=== PATIENT | female | born 1980 | race Caucasian/White ===

== ENCOUNTER → 2017-12-17 01:48 | Observation (INO) ==
[2017-12-16 23:39] LABS: Bilirubin,Urine Negative (Negative); Blood,Urine Negative (Negative); Clarity,Urine Clear (Clear); Color,Urine Yellow (Yellow); Glucose,Urine (UA) Normal (Normal); Ketones,Urine Negative (Negative); Leukocyte Esterase,Urine Negative (Negative); Nitrite,Urine Negative (Negative); PH,Urine 6.5 pH Units (5.0-8.0); Protein,Urine Negative (Neg-Trace); Specific Gravity,Urine 1.017 (1.010-1.025); Urobilinogen,Urine Normal (Normal)
[2017-12-16 23:48] LABS: Amphetamine Screen,Urine Negative ng/mL (Cutoff=1000); Barbiturate Screen,Urine Negative ng/mL (Cutoff=200); Benzodiazepines Screen,Urine Negative ng/mL (Cutoff=200); Cannabinoid Screen,Urine Negative ng/mL (Cutoff = 50); Cocaine Screen,Urine Negative ng/mL (Cutoff= 300); Opiate Screen,Urine Negative ng/mL (Cutoff=300); Phencyclidine Screen,Urine Negative ng/mL (Cutoff=25)
--- NOTE | 2017-12-17 01:34 | Discharge Summary ---
Date of Encounter: 12/17/17 Time of Encounter: 01:33 - Discharge Diagnosis (1) 31 weeks gestation of Priority: Primary Status: Acute Comments: Admitted for rule out of labor. UA WNL, reactive NST, no cervical change in one hour. Discussed plan of care with Dr. Melchor. Advised to send home if no cervical change in 1 hour. Follow up with Dr. Melchor as scheduled on 12/20/17. (2) Abdominal cramping affecting Priority: Secondary Status: Acute Comments: Admitted for observation of cramping. Mild irritability noted on uterine toco. No cervical change in one hour. OTC Tylenol and/or heating pad to back as needed for pain. (3) NST (non-stress test) reactive Priority: Secondary Status: Acute Comments: FHR 120 bpm, moderate variability, +15x15 accels, no decels. - Discharge Medications Home Medications: Pnv95/Ferrous Fumarate/FA [ Vitamin Tablet] 1 each PO 12/16/17 [History] Allergies/Adverse Reactions: Allergy/AdvReac Type Severity Reaction Status Date / Time ethinyl estradiol Allergy Rash Verified 07/08/17 20:59 [From Ortho Tri-Cyclen (28)] Hydroxychloroquine Allergy Rash Verified 07/08/17 20:59 [From Plaquenil] naproxen Allergy Rash Verified 07/08/17 20:59 norgestimate Allergy Rash Verified 07/08/17 20:59 [From Ortho Tri-Cyclen (28)] Penicillins Allergy Rash Verified 07/08/17 20:59 Data Procedures and tests throughout hospitalization: Laboratory Tests 12/16/17 12/16/17 23:28 23:28 Urine Color Yellow Urine Clarity Clear Urine pH 6.5 Ur Specific [place] 1.017 Urine Protein Negative Urine Glucose (UA) Normal Urine Ketones Negative Urine Blood Negative Urine Nitrite Negative Urine Bilirubin Negative Urine Urobilinogen Normal Ur Leukocyte Esterase Negative Ur Culture Indicated? NO Urine Opiates Screen Negative Ur Barbiturates Screen Negative Ur Phencyclidine Scrn Negative Ur Amphetamines Screen Negative U Benzodiazepines Scrn Negative Urine Cocaine Screen Negative U Marijuana (THC) Screen Negative Ur Drug Screen Interp See Below Labs on day of discharge: Labs from last 24 hours 12/16/17 12/16/17 23:28 23:28 Urine Color Yellow Urine Clarity Clear Urine pH 6.5 Ur Specific [place] 1.017 Urine Protein Negative Urine Glucose (UA) Normal Urine Ketones Negative Urine Blood Negative Urine Nitrite Negative Urine Bilirubin Negative Urine Urobilinogen Normal Ur Leukocyte Esterase Negative Ur Culture Indicated? NO Urine Opiates Screen Negative Ur Barbiturates Screen Negative Ur Phencyclidine Scrn Negative Ur Amphetamines Screen Negative U Benzodiazepines Scrn Negative Urine Cocaine Screen Negative U Marijuana (THC) Screen Negative Ur Drug Screen Interp See Below Date of admission: 12/16/17 23:12 Discharging clinician: Kerry Cuellar Anticipated date of discharge: 12/17/17 - Patient Status Disposition: Home, Self-Care Condition: Good Functional capacity at discharge: independent ambulation Overall status at discharge: patient is back to baseline - Discharge Instructions Follow Up With: Shamir Melchor MD [Partnered Physician] - - Diet and Activity Activity: resume usual activities as tolerated Diet: regular diet Hospital Course COMPOUND MIXER Hospital course: Tanja is a 37 year-old G [address] Melchor who present to the L&D unit with complaint of contractions, approximately 5-6 per hour, since 1700 today. Patient states she was at work when this started and had to leave to come be evaluated. She reports positive movement and denies vaginal bleeding, discharge, and fluid leakage. Denies intercourse in the last 48 hours. Patient reports this cramping pain is a level 8 of 10. UA reviewed and WNL. Patient states she does not work again until Tuesday next week. Discussed plan of care with Dr. Melchor and he suggested rechecking cervix in one hour and send home if no change. After one hour no cervical change was noted so patient given labor precautions. Time Attestation: Total time spent providing and/or coordinating discharge services: Time Spent: Less than 30 minutes Exam - Constitutional General appearance IM: cooperative, A&O X 3, no acute distress - Respiratory Respiratory exam: Present: CTAB - Cardiovascular Cardiovascular exam IM: Present: RRR, +S1, +S2 - GI/Abdominal GI/Abdominal exam IM: normal bowel sounds - Rectal Rectal exam: deferred - Neurological Exam Neurological exam: alert, normal gait, oriented X3 - VTE Reasons for not Prescribing Prophylaxis: Treatment not Indicated - Low risk for VTE
== END | disposition home or self-care (01) ==
LOC: 1NENULAB
PROVIDERS: ADMIT Obstetrics & Gynecology; ATTEND Obstetrics & Gynecology

== ENCOUNTER 2018-02-06 09:50 | Inpatient (IN) ==
[2018-02-06] MEDS ORDERED: Famotidine 20 MG/2 ML VIAL IVP PRN (10:31)
[2018-02-06] MEDS ORDERED: Naloxone 0.4 MG/ML INJ IVP PRN ×2 (10:31→11:54)
[2018-02-06] MEDS ORDERED: Metoclopramide 10 MG/2 ML VIAL IVP PRN (10:31)
[2018-02-06] MEDS ORDERED: Oxytocin 20 units/ LR 1000 mL 20 UNIT/1,000 ML BAG IVC SCH ×2 (10:45→20:14)
[2018-02-06] MEDS ORDERED: EPHEDrine 50 MG/ML VIAL IVP PRN (10:56)
[2018-02-06] MEDS ORDERED: Epidural Premix (fent/bupiv) 110 ML EP SCH (11:00)
--- NOTE | 2018-02-06 11:33 | Anesthesia Evaluation PreOp ---
Date of Encounter: 02/06/18 Time of Encounter: 11:16 - Past History Planned Operation: vaginal del, , multiparous 38wk induction Cardiac History: HTN (no current med according to patient), Hyperlipidemia Pulmonary History: Denies Any Significant HX EVP GENERAL COUNSEL History: Denies Any Significant HX Other Medical History: Denies Any Significant HX Anesthesia History: No Prior Anesthetic Complications, Past Anesthesia (2 previous epdurals without comp, "goes fast" del without in past also.) Alcohol Use: none Drug use: none Medications and Allergies Pnv95/Ferrous Fumarate/FA [ Vitamin Tablet] 1 each PO DAILY 12/16/17 [History] Allergy/AdvReac Type Severity Reaction Status Date / Time ethinyl estradiol Allergy Rash Verified 02/06/18 10:27 [From Ortho Tri-Cyclen (28)] Hydroxychloroquine Allergy Rash Verified 02/06/18 10:27 [From Plaquenil] naproxen Allergy Rash Verified 02/06/18 10:27 norgestimate Allergy Rash Verified 02/06/18 10:27 [From Ortho Tri-Cyclen (28)] Penicillins Allergy Rash Verified 02/06/18 10:27 Anesthesia Exam - HEENT Pupil (Motor): Pupils equal Mallampati: II Teeth: Normal Oral Opening: Greater than 3 - EVP GENERAL COUNSEL LOC: Oriented EVP GENERAL COUNSEL Motor: Normal RUE, Normal LUE, Normal RLE, Normal LLE, Normal Face EVP GENERAL COUNSEL Sensory: Normal: RUE, LUE, RLE, LLE, Face - Cardiac Rhythm: Regular - Pulmonary Breath Sounds: bilateral Clear Respiratory Effort: Symmetrical Anesthesia Assess/Plan ASA Score: 2 Level of consciousness: Cooperative, Oriented Anesthetic Plan: General, Spinal, Epidural Monitoring Plan: Standard Monitors Recovery Plan: PACU
[2018-02-06] MEDS ORDERED: Lidocaine -MPF 2% 5 ML VIAL ONE (11:41)
[2018-02-06] MEDS ORDERED: *HR* Nalbuphine 10 MG/ML AMPUL IV PRN (11:42)
[2018-02-06] MEDS: Ringers Solution, Lactated 1,000 ML IVC SCH ×2 (12:06→15:25)
[2018-02-06 12:22] LABS: Basophils % 0.3 %; Eosinophils # 0.2 K/mcL (0.0-0.6); Eosinophils % 1.9 %; Immature Granulocytes % 0.6 % (0-4); Lymphocytes # 2.3 K/mcL (0.6-4.6); Lymphocytes % 18.6 %; Mean Corpuscular HGB Conc 34.3 g/dL (31.6-35.5); Mean Corpuscular Hemoglobin 32.4 pg (28.0-33.3); Mean Corpuscular Volume 94.6 fL (83.0-100.0); Mean Platelet Volume 10.2 fL (9.4-12.4); Monocytes # 0.8 K/mcL (0.0-1.3); Monocytes % 6.6 %; Neutrophils # 8.9 K/mcL (1.6-8.9); Platelet Count 262 K/mcL (140-400); Red Cell Distribution Width 13.1 % (11.5-14.5)
[2018-02-06 12:30] LABS: Amphetamine Screen,Urine Negative ng/mL (Cutoff=1000); Barbiturate Screen,Urine Negative ng/mL (Cutoff=200); Benzodiazepines Screen,Urine Negative ng/mL (Cutoff=200); Cannabinoid Screen,Urine Negative ng/mL (Cutoff = 50); Cocaine Screen,Urine Negative ng/mL (Cutoff= 300); Opiate Screen,Urine Negative ng/mL (Cutoff=300); Phencyclidine Screen,Urine Negative ng/mL (Cutoff=25)
[2018-02-06 13:10] LABS: Alanine Aminotransferase 13 Units/L (7-52); Aspartate Amino Transferase 16 Units/L (13-39); BUN/Creatinine Ratio 24 (6-26); Blood Urea Nitrogen 9 mg/dL (6-20); Lactate Dehydrogenase 144 Units/L (140-271); Uric Acid 5.5 mg/dL (2.3-7.6); eGFR For Non-African Americans > 60 (> 60)
--- NOTE | 2018-02-06 13:55 | OB/GYN History & Physical ---
Date of Encounter: 02/06/18 Time of Encounter: 13:52 Assessment and Plan (1) 39 weeks gestation of Current visit: Yes Status: Acute Induction of labor History of Present Illness Chief complaint: Induction of labor HPI: Ms. Parr is a 37 year old female scheduled for induction of labor at 39 weeks and 1 day. Patient with advanced cervical dilation and history of rapid labors. On presentation patient is 4-5 cm 80% effaced and -1 station. Infant is vertex. She is doing well. She is rah irregularly. She has allergies to Naprosyn and penicillin. Current medications include vitamins. Chronic medical conditions include chronic migraines, anxiety, hypercholesterolemia, hypertension. Surgical history includes a cholecystectomy and tonsillectomy. She has no history of abnormal Pap smears, STDs or pelvic infections. She has no history of abnormal breast findings. Socially she denies tobacco, alcohol, illicit drug use. Obstetric history significant for 4 term vaginal deliveries. Family history is significant for heart disease, hypertension and mental issues. Past Med Surg Social Fam HX - Past Medical History Medical history: hyperlipidemia, hypertension, migraine Additional medical history: lupus Psychiatric history: anxiety - Past Surgical History Surgical History: cholecystectomy, other Additional surgical history: T&A - Social History Smoking Status: Current every day smoker Packs per day: 0.5-1 Smokeless Tobacco Status: No Alcohol use: none Drug use: none - Family History Mother Family Member Ethnicity: Non- Living Status: Still Living Hx Family Cardiac Disorders: Yes (HTN) Hx Family Medical Disorders: Yes (depression) Obstetrical History - Pregnancies : 15 Para: 4 Term: 4 : 0 Ab's: 10 Livin Medications and Allergies Pnv95/Ferrous Fumarate/FA [ Vitamin Tablet] 1 each PO DAILY 12/16/17 [History] Allergy/AdvReac Type Severity Reaction Status Date / Time ethinyl estradiol Allergy Rash Verified 02/06/18 10:27 [From Ortho Tri-Cyclen (28)] Hydroxychloroquine Allergy Rash Verified 02/06/18 10:27 [From Plaquenil] naproxen Allergy Rash Verified 02/06/18 10:27 norgestimate Allergy Rash Verified 02/06/18 10:27 [From Ortho Tri-Cyclen (28)] Penicillins Allergy Rash Verified 02/06/18 10:27 Review of System OB All systems PM: reviewed and no additional remarkable complaints except as stated Exam - Constitutional Constitutional: well developed, well nourished, no acute distress, average body habitus - HEENT HEENT: EOMI, PERRL - Neck Neck exam: full ROM - Lungs Respiratory exam: CTAB - Cardiovascular Cardiovascular exam: RRR - Abdomen Abdomen: Present: bowel sounds normal, gravid Results Result Diagrams: 02/06/18 10:32 02/06/18 11:25 Abnormal lab results WBC 12.3 K/mcL (4.3-11.1) H 02/06/18 10:32 RBC 3.70 M/mcL (3.82-4.97) L 02/06/18 10:32 Hct 35.0 % (35.3-44.9) L 02/06/18 10:32 Creatinine 0.37 mg/dL (0.60-1.20) L 02/06/18 11:25 All other labs normal. - VTE Reasons for not Prescribing Prophylaxis: Treatment not Indicated - Low risk for VTE
--- NOTE | 2018-02-06 14:08 | Anesthesia Procedures ---
Addendum entered and electronically signed by Curtis Dockery CRNA 02/06/18 19:02: Infant Delivery Date: 02/06/18 Infant Delivery Time: 18:17 Original Note: Date of Encounter: 02/06/18 Time of Encounter: 13:49 Procedures: Anesthesia - Epidural/Spinal Patient ID/Chart reviewed: Yes Patient examined: Yes OB Eval: Gestational age: term OB Eval: Contractions: Non-stressed pattern Consent Obtained: Yes Supplemental Oxygen: None/Room Air Site Prep: Aseptic Technique, Sterile prep and drape, 0.5% Chlorhexidine/Alcohol Patient position: upright Local Anesthetic: Lidocaine 1% Amount of Local Anesthetic used: 2 Touhy Needle Gauge: 18 Touhy Needle Depth (cm): 7 Catheter Depth at Skin (cm): 11 Test Dose (1.5% Lido + Epi): Volume given (mls): 3 Test Dose Result: Negative Loading Dose: Other: 10ml from solution Loading Dose Administered: Thru Catheter Infusion Med: 0.125% Bupivacaine w/ 2 mcg/ml Fentanyl Infusion Rate (mls/hr): [address]: Tegaderm, Tape Interspace Used: L3-L4 Loss of Resistance (TERRY): Yes (saline) Blood: No CSF: No Paresthesia: No Procedure: vss though out procedure, FHR stable per RN's
--- NOTE | 2018-02-06 15:36 | OB Labor Progress Note ---
Date of Encounter: 02/06/18 Time of Encounter: 15:34 Labor Progress Note - Subjective Subjective: Patient comfortable with epidural. - Cervix Cervix: 6/70/-1 - Heart Tones Heart Tones: FHR Category I - [place]: Contractions adequate - Interventions Interventions: SVE AROM - large amount clear fluid - Plan Physician notified: Yes Plan: Continue induction management Frequent position changes Anticipate vaginal delivery Dr. Melchor updated
--- NOTE | 2018-02-06 16:42 | OB/GYN Progress Note ---
Date of Encounter: 02/06/18 Time of Encounter: 16:40 - Assessment and Plan (1) 39 weeks gestation of Current Visit: Yes Status: Acute Induction of labor Subjective - Subjective Principal diagnosis: labor Interval history: Tanja Levin is a 37-year-old female G 15 P4 who presented today for induction of labor. Artificial rupture membranes performed by prison guard supervisor. Sterile vaginal exam 6 cm 90% effaced and -1 station. Clear fluid being noted. Objective - Vital Signs Vital Signs: Intake and Output 02/06/18 02/06/18 02/06/18 07:59 15:59 23:59 Intake Total 1000 / 1000 Balance 1000 / 1000 Intake: IV Fluids 1000 / 1000 Lactated Ringers 1,000 ML @ 125 1000 / 1000 mls/hr IVC .Q8H DENISE Rx#: [id number] Other: Weight 89.3 kg Patient Weight 02/06/18 23:59 Weight 89.3 kg - Exam FHR: category 1 Abdomen: Present: normal appearance Uterus: Present: normal Cervical dilation: 6 Cervix effacement: 90 station: -1 - Labs Labs: Abnormal lab results WBC 12.3 K/mcL (4.3-11.1) H 02/06/18 10:32 RBC 3.70 M/mcL (3.82-4.97) L 02/06/18 10:32 Hct 35.0 % (35.3-44.9) L 02/06/18 10:32 Creatinine 0.37 mg/dL (0.60-1.20) L 02/06/18 11:25
--- NOTE | 2018-02-06 18:48 | OB/GYN Procedure Note ---
Delivery - Delivery Provider: Shamir Melchor Intrapartum events: none Delivery induction: AROM, oxytocin Delivery augmentation: rupture of membranes Delivery monitor: external FHT, external uterine Anesthesia: epidural Quantitated Blood Loss: 300 - (s) Infant A Delivery Date: 02/06/18 Infant Delivery Time: 18:17 Presentation: vertex Position: OA Gender: Female Viability: Viable Pounds: 6 Ounces: 11 at 1 minute: 8 at 5 mins: 9 Shoulder Dystocia: not encountered Specimens collected: cord blood Placenta: spontaneous Cord: 3 umbilical vessels - Repair Laceration Description: None - Complications Delivery complications: none Delivery comments: Patient progressed to complete and pushing had a rapid spontaneous vaginal delivery of a female over an intact perineum. Infant's head was in the perineum easily. The rest of the infant was not delivered with 1 push. cried immediately upon delivery. The cord was cut to cut. The was in past nurse in attendance. Cord bloods obtained. Placenta was delivered spontaneously intact. There are no cervical, vaginal, periurethral, or perineal lacerations noted. Patient delivered a female infant weight is 6 lbs. 11 oz. with a 9 Apgars. - Disposition Mom disposition: stable in LDR disposition: stable in LDR
[2018-02-06] MEDS ORDERED: Measles/Mumps/Rubella Vacc 0.5 ML VIAL SQ PRN (20:14)
[2018-02-06] MEDS ORDERED: Acetaminophen 325 MG TABLET PO PRN (20:14)
[2018-02-06] MEDS ORDERED: Rho Immune Globulin 1,500 UNIT SYRINGE IM PRN (20:14)
[2018-02-06] MEDS ORDERED: Ibuprofen 600 MG TABLET PO PRN (21:24)
[2018-02-07 08:06] LABS: Basophils % 0.3 %; Eosinophils # 0.2 K/mcL (0.0-0.6); Eosinophils % 1.5 %; Hematocrit 28.8 % (35.3-44.9); Immature Granulocytes % 0.5 % (0-4); Lymphocytes # 3.2 K/mcL (0.6-4.6); Lymphocytes % 28.2 %; Mean Corpuscular HGB Conc 34.4 g/dL (31.6-35.5); Mean Corpuscular Hemoglobin 32.5 pg (28.0-33.3); Mean Corpuscular Volume 94.4 fL (83.0-100.0); Mean Platelet Volume 10.3 fL (9.4-12.4); Monocytes # 0.9 K/mcL (0.0-1.3); Monocytes % 7.9 %; Neutrophils # 6.9 K/mcL (1.6-8.9); Platelet Count 237 K/mcL (140-400); Red Blood Count 3.05 M/mcL (3.82-4.97); Red Cell Distribution Width 12.9 % (11.5-14.5); Segmented Neutrophils % 61.6 %
[2018-02-07 08:11] VITALS: BP 114/71
[2018-02-07 08:26] LABS: Hemoglobin 9.9 g/dL (11.5-15.4)
[2018-02-07] MEDS ORDERED: Prenatal Vit/FA 1 EACH TABLET PO SCH (09:00)
--- NOTE | 2018-02-07 11:07 | Discharge Summary ---
Date of Encounter: 02/07/18 Time of Encounter: 11:06 - Discharge Medications Prescriptions: Breast Pump [BREAST PUMP] 1 each .ROUTE AD #1 each Home Medications: Pnv95/Ferrous Fumarate/FA [ Vitamin Tablet] 1 each PO DAILY 12/16/17 [History] Breast Pump [BREAST PUMP] 1 each .ROUTE AD #1 each 02/07/18 [Rx] Allergies/Adverse Reactions: Allergy/AdvReac Type Severity Reaction Status Date / Time ethinyl estradiol Allergy Rash Verified 02/06/18 10:27 [From Ortho Tri-Cyclen (28)] Hydroxychloroquine Allergy Rash Verified 02/06/18 10:27 [From Plaquenil] naproxen Allergy Rash Verified 02/06/18 10:27 norgestimate Allergy Rash Verified 02/06/18 10:27 [From Ortho Tri-Cyclen (28)] Penicillins Allergy Rash Verified 02/06/18 10:27 Data Procedures and tests throughout hospitalization: Laboratory Tests 02/06/18 02/06/18 02/06/18 10:32 11:25 11:25 WBC 12.3 H RBC 3.70 L Hgb 12.0 Hct 35.0 L MCV 94.6 MCH 32.4 MCHC 34.3 RDW 13.1 Plt Count 262 MPV 10.2 Immature Gran % 0.6 Seg Neutrophils % 72.0 Lymphocytes % 18.6 Monocytes % 6.6 Eosinophils % 1.9 Basophils % 0.3 Neutrophils # 8.9 Lymphocytes # 2.3 Monocytes # 0.8 Eosinophils # 0.2 Basophils # 0.0 BUN 9 Creatinine 0.37 L Est GFR ( Amer) > 60 Est GFR (Non-Af Amer) > 60 BUN/Creatinine Ratio 24 Uric Acid 5.5 AST 16 ALT 13 Lactate Dehydrogenase 144 Urine Opiates Screen Negative Ur Barbiturates Screen Negative Ur Phencyclidine Scrn Negative Ur Amphetamines Screen Negative U Benzodiazepines Scrn Negative Urine Cocaine Screen Negative U Marijuana (THC) Screen Negative Ur Drug Screen Interp See Below Baby's Blood Type Mother's Blood Type Rhogam Indicated 02/06/18 02/07/18 18:50 07:37 WBC 11.2 H RBC 3.05 L Hgb 9.9 L D Hct 28.8 L MCV 94.4 MCH 32.5 MCHC 34.4 RDW 12.9 Plt Count 237 MPV 10.3 Immature Gran % 0.5 Seg Neutrophils % 61.6 Lymphocytes % 28.2 Monocytes % 7.9 Eosinophils % 1.5 Basophils % 0.3 Neutrophils # 6.9 Lymphocytes # 3.2 Monocytes # 0.9 Eosinophils # 0.2 Basophils # 0.0 BUN Creatinine Est GFR ( Amer) Est GFR (Non-Af Amer) BUN/Creatinine Ratio Uric Acid AST ALT Lactate Dehydrogenase Urine Opiates Screen Ur Barbiturates Screen Ur Phencyclidine Scrn Ur Amphetamines Screen U Benzodiazepines Scrn Urine Cocaine Screen U Marijuana (THC) Screen Ur Drug Screen Interp Baby's Blood Type A RH POSITIVE Mother's Blood Type A RH NEGATIVE Rhogam Indicated YES Labs on day of discharge: Labs from last 24 hours 02/07/18 02/06/18 02/06/18 07:37 18:50 11:25 WBC 11.2 H RBC 3.05 L Hgb 9.9 L D Hct 28.8 L MCV 94.4 MCH 32.5 MCHC 34.4 RDW 12.9 Plt Count 237 MPV 10.3 Immature Gran % 0.5 Seg Neutrophils % 61.6 Lymphocytes % 28.2 Monocytes % 7.9 Eosinophils % 1.5 Basophils % 0.3 Neutrophils # 6.9 Lymphocytes # 3.2 Monocytes # 0.9 Eosinophils # 0.2 Basophils # 0.0 BUN 9 Creatinine 0.37 L Est GFR ( Amer) > 60 Est GFR (Non-Af Amer) > 60 BUN/Creatinine Ratio 24 Uric Acid 5.5 AST 16 ALT 13 Lactate Dehydrogenase 144 Urine Opiates Screen Ur Barbiturates Screen Ur Phencyclidine Scrn Ur Amphetamines Screen U Benzodiazepines Scrn Urine Cocaine Screen U Marijuana (THC) Screen Ur Drug Screen Interp Screen Pending Baby's Blood Type A RH POSITIVE Mother's Blood Type A RH NEGATIVE Rhogam Indicated YES Rhogam Req for Mother Pending 02/06/18 02/06/18 11:25 10:32 WBC 12.3 H RBC 3.70 L Hgb 12.0 Hct 35.0 L MCV 94.6 MCH 32.4 MCHC 34.3 RDW 13.1 Plt Count 262 MPV 10.2 Immature Gran % 0.6 Seg Neutrophils % 72.0 Lymphocytes % 18.6 Monocytes % 6.6 Eosinophils % 1.9 Basophils % 0.3 Neutrophils # 8.9 Lymphocytes # 2.3 Monocytes # 0.8 Eosinophils # 0.2 Basophils # 0.0 BUN Creatinine Est GFR ( Amer) Est GFR (Non-Af Amer) BUN/Creatinine Ratio Uric Acid AST ALT Lactate Dehydrogenase Urine Opiates Screen Negative Ur Barbiturates Screen Negative Ur Phencyclidine Scrn Negative Ur Amphetamines Screen Negative U Benzodiazepines Scrn Negative Urine Cocaine Screen Negative U Marijuana (THC) Screen Negative Ur Drug Screen Interp See Below Screen Baby's Blood Type Mother's Blood Type Rhogam Indicated Rhogam Req for Mother Date of admission: 02/06/18 09:50 Primary care physician: Maura Zuniga CNP Consults: 02/06/18 20:14 Consult to Bench Technician [CONS] Routine Comment: Vaginal delivery, consult needed Discharging clinician: Silva Meyers Anticipated date of discharge: 02/07/18 - Discharge Instructions Follow Up With: Maura Zuniga CNP [Primary Care Provider] - Hospital Course Time Attestation: Total time spent providing and/or coordinating discharge services: - VTE Reasons for not Prescribing Prophylaxis: Treatment not Indicated - Low risk for VTE Exam - Constitutional Vitals: Temp Pulse Resp BP Pulse Ox 98.3 F 68 16 114/71 98 02/07/18 08:09 02/07/18 08:09 02/07/18 08:09 02/07/18 08:09 02/07/18 08:09
--- NOTE | 2018-02-07 11:47 | OB/GYN Progress Note ---
Date of Encounter: 02/07/18 Time of Encounter: 11:46 Subjective - Subjective Principal diagnosis: 3 Objective - Latest Vital Signs Latest vital signs: Vital Signs Temp Pulse Resp BP Pulse Ox 02/07/18 08:09 98.3 F 68 16 114/71 98 02/07/18 03:00 98.0 F 67 16 118/73 98 02/06/18 23:00 97.9 F 66 16 134/88 98 02/06/18 22:00 98.0 F 66 14 126/83 99 02/06/18 21:00 97.9 F 71 14 139/87 98 Intake and Output 02/06/18 02/07/18 02/07/18 23:59 07:59 15:59 Intake Total 1200 / 1200 800 / 800 Output Total 500 / 500 250 / 250 100 / 100 Balance -500 / -500 950 / 950 700 / 700 Intake: IV Fluids 600 / 600 Pitocin 20 unit In 1,000 ml @ 600 / 600 125 mls/hr IVC .Q8H DENISE Rx#: [id number] Oral 600 / 600 800 / 800 Output: Urine 200 / 200 250 / 250 100 / 100 Estimated Blood Loss 300 / 300 Other: Weight 85 kg Patient Weight 02/07/18 23:59 Weight 85 kg - Labs Labs: Laboratory Results - last 24 hr 02/06/18 02/06/18 02/06/18 10:32 11:25 11:25 WBC 12.3 H RBC 3.70 L Hgb 12.0 Hct 35.0 L MCV 94.6 MCH 32.4 MCHC 34.3 RDW 13.1 Plt Count 262 MPV 10.2 Immature Gran % 0.6 Seg Neutrophils % 72.0 Lymphocytes % 18.6 Monocytes % 6.6 Eosinophils % 1.9 Basophils % 0.3 Neutrophils # 8.9 Lymphocytes # 2.3 Monocytes # 0.8 Eosinophils # 0.2 Basophils # 0.0 BUN 9 Creatinine 0.37 L Est GFR ( Amer) > 60 Est GFR (Non-Af Amer) > 60 BUN/Creatinine Ratio 24 Uric Acid 5.5 AST 16 ALT 13 Lactate Dehydrogenase 144 Urine Opiates Screen Negative Ur Barbiturates Screen Negative Ur Phencyclidine Scrn Negative Ur Amphetamines Screen Negative U Benzodiazepines Scrn Negative Urine Cocaine Screen Negative U Marijuana (THC) Screen Negative Ur Drug Screen Interp See Below Screen Baby's Blood Type Mother's Blood Type Rhogam Indicated Rhogam Req for Mother 02/06/18 02/07/18 18:50 07:37 WBC 11.2 H RBC 3.05 L Hgb 9.9 L D Hct 28.8 L MCV 94.4 MCH 32.5 MCHC 34.4 RDW 12.9 Plt Count 237 MPV 10.3 Immature Gran % 0.5 Seg Neutrophils % 61.6 Lymphocytes % 28.2 Monocytes % 7.9 Eosinophils % 1.5 Basophils % 0.3 Neutrophils # 6.9 Lymphocytes # 3.2 Monocytes # 0.9 Eosinophils # 0.2 Basophils # 0.0 BUN Creatinine Est GFR ( Amer) Est GFR (Non-Af Amer) BUN/Creatinine Ratio Uric Acid AST ALT Lactate Dehydrogenase Urine Opiates Screen Ur Barbiturates Screen Ur Phencyclidine Scrn Ur Amphetamines Screen U Benzodiazepines Scrn Urine Cocaine Screen U Marijuana (THC) Screen Ur Drug Screen Interp Screen NEGATIVE Baby's Blood Type A RH POSITIVE Mother's Blood Type A RH NEGATIVE Rhogam Indicated YES Rhogam Req for Mother 1
--- NOTE | 2018-02-07 11:54 | Discharge Summary ---
Date of Encounter: 02/07/18 Time of Encounter: 11:50 - Discharge Diagnosis (1) Status post vaginal delivery Priority: Secondary Status: Acute Comments: Status post vaginal delivery day 1 Meeting day 1 milestones Pain is well controlled Ambulating without dizziness Appetite is normal Voiding well and passing flatus Lochia is light Mood is appropriate Discussed safe spacing Will do one dose of Depo provera for contraception Healthy female 6lb 11oz 8/9 Well to discharge to home Follow up in 4 weeks (2) 39 weeks gestation of Priority: Primary Status: Acute Comments: Now Delivered at 39w1d - Discharge Medications Prescriptions: RX: Ibuprofen [Motrin] 600 mg PO Q6HR PRN #30 tablet PRN Reason: Pain Breast Pump [BREAST PUMP] 1 each .ROUTE AD #1 each RX: Docusate [Colace] 100 mg PO BID #30 capsule RX: Ferrous Sulfate 325 mg PO DAILY #90 tablet Home Medications: RX: Pnv95/Ferrous Fumarate/FA [ Vitamin Tablet] 1 each PO DAILY 12/16/17 [History] Breast Pump [BREAST PUMP] 1 each .ROUTE AD #1 each 02/07/18 [Rx] RX: Acetaminophen [Tylenol] 650 mg PO Q6HR PRN tablet 02/07/18 [Rx] RX: Docusate [Colace] 100 mg PO BID #30 capsule 02/07/18 [Rx] RX: Ferrous Sulfate 325 mg PO DAILY #90 tablet 02/07/18 [Rx] RX: Ibuprofen [Motrin] 600 mg PO Q6HR PRN #30 tablet 02/07/18 [Rx] Allergies/Adverse Reactions: Allergy/AdvReac Type Severity Reaction Status Date / Time ethinyl estradiol Allergy Rash Verified 02/06/18 10:27 [From Ortho Tri-Cyclen (28)] Hydroxychloroquine Allergy Rash Verified 02/06/18 10:27 [From Plaquenil] naproxen Allergy Rash Verified 02/06/18 10:27 norgestimate Allergy Rash Verified 02/06/18 10:27 [From Ortho Tri-Cyclen (28)] Penicillins Allergy Rash Verified 02/06/18 10:27 Data Procedures and tests throughout hospitalization: Laboratory Tests 02/06/18 02/06/18 02/06/18 10:32 11:25 11:25 WBC 12.3 H RBC 3.70 L Hgb 12.0 Hct 35.0 L MCV 94.6 MCH 32.4 MCHC 34.3 RDW 13.1 Plt Count 262 MPV 10.2 Immature Gran % 0.6 Seg Neutrophils % 72.0 Lymphocytes % 18.6 Monocytes % 6.6 Eosinophils % 1.9 Basophils % 0.3 Neutrophils # 8.9 Lymphocytes # 2.3 Monocytes # 0.8 Eosinophils # 0.2 Basophils # 0.0 BUN 9 Creatinine 0.37 L Est GFR ( Amer) > 60 Est GFR (Non-Af Amer) > 60 BUN/Creatinine Ratio 24 Uric Acid 5.5 AST 16 ALT 13 Lactate Dehydrogenase 144 Urine Opiates Screen Negative Ur Barbiturates Screen Negative Ur Phencyclidine Scrn Negative Ur Amphetamines Screen Negative U Benzodiazepines Scrn Negative Urine Cocaine Screen Negative U Marijuana (THC) Screen Negative Ur Drug Screen Interp See Below Screen Baby's Blood Type Mother's Blood Type Rhogam Indicated Rhogam Req for Mother 02/06/18 02/07/18 18:50 07:37 WBC 11.2 H RBC 3.05 L Hgb 9.9 L D Hct 28.8 L MCV 94.4 MCH 32.5 MCHC 34.4 RDW 12.9 Plt Count 237 MPV 10.3 Immature Gran % 0.5 Seg Neutrophils % 61.6 Lymphocytes % 28.2 Monocytes % 7.9 Eosinophils % 1.5 Basophils % 0.3 Neutrophils # 6.9 Lymphocytes # 3.2 Monocytes # 0.9 Eosinophils # 0.2 Basophils # 0.0 BUN Creatinine Est GFR ( Amer) Est GFR (Non-Af Amer) BUN/Creatinine Ratio Uric Acid AST ALT Lactate Dehydrogenase Urine Opiates Screen Ur Barbiturates Screen Ur Phencyclidine Scrn Ur Amphetamines Screen U Benzodiazepines Scrn Urine Cocaine Screen U Marijuana (THC) Screen Ur Drug Screen Interp Screen NEGATIVE Baby's Blood Type A RH POSITIVE Mother's Blood Type A RH NEGATIVE Rhogam Indicated YES Rhogam Req for Mother 1 Labs on day of discharge: Labs from last 24 hours 02/07/18 02/06/18 02/06/18 07:37 18:50 11:25 WBC 11.2 H RBC 3.05 L Hgb 9.9 L D Hct 28.8 L MCV 94.4 MCH 32.5 MCHC 34.4 RDW 12.9 Plt Count 237 MPV 10.3 Immature Gran % 0.5 Seg Neutrophils % 61.6 Lymphocytes % 28.2 Monocytes % 7.9 Eosinophils % 1.5 Basophils % 0.3 Neutrophils # 6.9 Lymphocytes # 3.2 Monocytes # 0.9 Eosinophils # 0.2 Basophils # 0.0 BUN 9 Creatinine 0.37 L Est GFR ( Amer) > 60 Est GFR (Non-Af Amer) > 60 BUN/Creatinine Ratio 24 Uric Acid 5.5 AST 16 ALT 13 Lactate Dehydrogenase 144 Urine Opiates Screen Ur Barbiturates Screen Ur Phencyclidine Scrn Ur Amphetamines Screen U Benzodiazepines Scrn Urine Cocaine Screen U Marijuana (THC) Screen Ur Drug Screen Interp Screen NEGATIVE Baby's Blood Type A RH POSITIVE Mother's Blood Type A RH NEGATIVE Rhogam Indicated YES Rhogam Req for Mother 1 02/06/18 02/06/18 11:25 10:32 WBC 12.3 H RBC 3.70 L Hgb 12.0 Hct 35.0 L MCV 94.6 MCH 32.4 MCHC 34.3 RDW 13.1 Plt Count 262 MPV 10.2 Immature Gran % 0.6 Seg Neutrophils % 72.0 Lymphocytes % 18.6 Monocytes % 6.6 Eosinophils % 1.9 Basophils % 0.3 Neutrophils # 8.9 Lymphocytes # 2.3 Monocytes # 0.8 Eosinophils # 0.2 Basophils # 0.0 BUN Creatinine Est GFR ( Amer) Est GFR (Non-Af Amer) BUN/Creatinine Ratio Uric Acid AST ALT Lactate Dehydrogenase Urine Opiates Screen Negative Ur Barbiturates Screen Negative Ur Phencyclidine Scrn Negative Ur Amphetamines Screen Negative U Benzodiazepines Scrn Negative Urine Cocaine Screen Negative U Marijuana (THC) Screen Negative Ur Drug Screen Interp See Below Screen Baby's Blood Type Mother's Blood Type Rhogam Indicated Rhogam Req for Mother Date of admission: 02/06/18 09:50 Primary care physician: Maura Zuniga CNP Consults: 02/06/18 20:14 Consult to Photography Sales Associate [CONS] Routine Comment: Vaginal delivery, consult needed Discharging clinician: Silva Meyers Anticipated date of discharge: 02/07/18 - Patient Status Disposition: Home, Self-Care Condition: Good Functional capacity at discharge: independent ambulation Overall status at discharge: patient is back to baseline - Discharge Instructions Follow Up With: Maura Zuniga CNP [Primary Care Provider] - Shamir Melchor MD [Partnered Physician] - - Diet and Activity Activity: increase activity as tolerated Diet: advance to your usual diet Hospital Course Reason for admission: induction of labor Delivery: Episiotomy: none Laceration: none Other procedures: none complications: none Discharge diagnosis: IUP at term delivered baby: female Hospital course: Patient progressed to complete and pushing had a rapid spontaneous vaginal delivery of a female over an intact perineum. 's head was in the perineum easily. The rest of the was not delivered with 1 push. Infant cried immediately upon delivery. The cord was cut to cut. The infant was in past nurse in attendance. Cord bloods obtained. Placenta was delivered spontaneously intact. There are no cervical, vaginal, periurethral, or perineal lacerations noted. Patient delivered a female infant weight is 6 lbs. 11 oz. with a 9 Apgars. Time Attestation: Total time spent providing and/or coordinating discharge services: Time Spent: Greater than 30 minutes Exam - Constitutional Vitals: Temp Pulse Resp BP Pulse Ox 98.3 F 68 16 114/71 98 02/07/18 08:09 02/07/18 08:09 02/07/18 08:09 02/07/18 08:09 02/07/18 08:09 General appearance IM: A&O X 3, pleasant, no acute distress, answers questions appropriately - Respiratory Respiratory exam: Present: CTAB. Absent: rales, respiratory distress, rhonchi, wheezes - Cardiovascular Cardiovascular exam IM: Present: RRR, +S1, +S2. Absent: irregular rhythm - GI/Abdominal GI/Abdominal exam IM: normal bowel sounds, soft - Rectal Rectal exam: deferred - External exam: normal external exam Uterine Tone: Firm Uterus Position: 1 Finger Below Umbilicus - Extremities Exam Extremities exam IM: Present: normal inspection, pedal edema. Absent: calf ten derness - Neurological Exam Neurological exam: CN II-XII intact, oriented X3, no focal deficits - Psychiatric Additional comments: Mood is appropriate - Attending Attestation I examined this patient and my medical decision-making was reviewed with the Resident Physician. I agree with the documented findings, disposition and treatment plan as described. Stephania Armando CNM
== END 2018-02-07 20:00 | disposition home or self-care (01) | DRG 560 ==
LOC: 1NENULAB 09:50 → 1NENUOBS 20:34
PROVIDERS: ADMIT Obstetrics & Gynecology; ATTEND Obstetrics & Gynecology